=== PATIENT | male | born 1985 | race Caucasian/White ===

== ENCOUNTER 2017-05-02 16:34 | Emergency (ER) | payer OTHER ==
[~2017-05-02] VITALS: Ht 175.3 cm; Wt 86.2 kg
[~2017-05-02 16:34] MED LIST: ALBUTEROL17 GM INH; AMOXICILLIN PO; COMPAZINE10 M1 PO; DICYCLOMINE HCL20 MG PO; ORUDIS75 M1 PO; PAXIL PO; PEN-VEE K PO; PHENERGAN PO; PRILOSEC PO; REGLAN PO; ULTRAM PO; ZITHROMAX PO
== END 2017-05-02 19:15 | disposition home or self-care (01) ==
LOC: CFTX 16:34 → CED 16:34 → CFTX 18:51
DX: K02.9 Dental caries, unspecified (principal); F17.210 Nicotine dependence, cigarettes, uncomplicated
CPT/HCPCS: 99283